=== PATIENT | male | born 1995 | race Asian ===

== ENCOUNTER 2024-03-14 00:29 | Emergency (ER) | payer OTHER ==
[~2024-03-14] VITALS: Ht 172.7 cm; Wt 86.4 kg
[2024-03-14 01:11] LABS: COVID AG,FIA SOURCE NASAL SWAB
[2024-03-14 01:32] LABS: INFLUENZA TYPE A NEGATIVE FOR TYPE A (NEGATIVE); INFLUENZA TYPE B NEGATIVE FOR TYPE B (NEGATIVE)
[2024-03-14 01:33] LABS: SARS-COV2 (COVID) ANTIGEN,FIA Negative (Negative)
[2024-03-14] MEDS ORDERED: ACET-66 PO (04:11)
[2024-03-14] MEDS ORDERED: IBUP-1554 PO (04:11)
[2024-03-14] MEDS ORDERED: DIPH-1130 PO (04:11)
[2024-03-14] MEDS ORDERED: ONDA-104 PO (04:11)
[2024-03-14] MEDS: ACETAMINOPHEN 500 MG TABLET PO ONE (04:24)
[2024-03-14] MEDS: ONDANSETRON 4 MG TABLET PO ONE (04:24)
[2024-03-14] MEDS: DIPHENOXYLATE/ATROP 2.5-0.025 MG TABLET PO ONE (04:24)
[2024-03-14 04:30] VITALS: BP 126/69; PULSE 100; RESP 16; TEMP 98.2; O2SAT 100
== END 2024-03-14 04:32 | disposition home or self-care (01) ==
LOC: EDBD 00:33 → EMS 00:33
DX: K52.9 Noninfective gastroenteritis and colitis, unspecified (principal); R51.9 Headache, unspecified; Z20.822 Contact with and (suspected) exposure to COVID-19
CPT/HCPCS: 99284; 87426; 87804; Q0162